=== PATIENT | male | born 1960 | race African-American/Black ===

== ENCOUNTER 2019-07-17 13:11 | Emergency (ER) | payer SELFPAY ==
[~2019-07-17] VITALS: Ht 180.3 cm; Wt 86.3 kg
[2019-07-17 14:03] VITALS: BP 121/87
[2019-07-17] MEDS: ALPRAZolam 0.5 MG TABLET PO ONE (14:06)
--- NOTE | 2019-07-17 14:53 | PHYS DOC ---
Past Medical History Past Medical History: Anxiety, Depression, Hypertension, Schizophrenia Past Surgical History: Other Additional Past Surgical Histo: HERNIA Smoking Status: Current Every Day Smoker Alcohol Use: Occasionally Adult General Chief Complaint Chief Complaint: TONGUE SWELLING/INJURY HPI HPI Patient is a 59 year old male with history of schizophrenia and hypertension who presents with complaining of swelling of "bump of tongue". Patient states for the last couple days he feels a lump in lateral right side of tongue and top of his mouth without pain, bleeding, soreness, injury. Patient states he feels something moving inside of his mouth and Googled his symptom and found out that he has parasite inside of his mouth. Patient states because of this problem he has hallucinations and hearing voices and seeing something that other people cannot see. Patient denies suicidal or homicidal ideation and missing his medication. Review of Systems Review of Systems Constitutional: Denies fever or chills [] Eyes: Denies change in visual acuity, redness, or eye pain [] HENT: Denies nasal congestion or sore throat [] Respiratory: Denies cough or shortness of breath [] Cardiovascular: No additional information not addressed in HPI [] GI: Denies abdominal pain, nausea, vomiting, bloody stools or diarrhea [] : Denies dysuria or hematuria [] Musculoskeletal: Denies back pain or joint pain [] Integument: Denies rash or skin lesions [] Neurologic: Denies headache, focal weakness or sensory changes [] Endocrine: Denies polyuria or polydipsia [] All other systems were reviewed and found to be within normal limits, except as documented in this note. Current Medications Current Medications Current Medications Medications (Trade) Dose Ordered Sig/[facility] Start Time Stop Time Status Last Admin Dose Admin Alprazolam (Xanax) 0.5 mg 1X ONCE 07/17/19 14:00 07/17/19 14:01 DC 07/17/19 14:06 0.5 MG Allergies Allergies Allergies Coded Allergies Type Severity Reaction Last Updated Verified No Known Drug Allergies 07/17/19 No Physical Exam Physical Exam Constitutional: Well nourished, no acute distress, non-toxic appearance. [] HENT: Normocephalic, atraumatic, bilateral external ears normal, oropharynx moist, no oral exudates, normal tongue exam, nose normal. [] Eyes: PERRLA, EOMI, conjunctiva normal, no discharge. [] Neck: Normal range of motion, no tenderness, supple, no stridor. [] Cardiovascular:Heart rate regular rhythm, no murmur [] Lungs & Thorax: Bilateral breath sounds clear to auscultation [] Skin: Warm, dry, no erythema, no rash. [] Back: No tenderness, no CVA tenderness. [] Extremities: No tenderness, no cyanosis, no clubbing, ROM intact, no edema. [] Neurologic: Alert and oriented X 3, normal motor function, normal sensory function, no focal deficits noted. [] Psychologic: Affect anxious, mood normal. [] Current Patient Data Vital Signs Vital Signs Date Time Temp Pulse Resp B/P (MAP) Pulse Ox O2 Delivery O2 Flow Rate FiO2 07/17/19 14:03 82 121/87 (98) 96 Room Air 07/17/19 13:34 97.5 14 97.5 EKG EKG [] Radiology/Procedures Radiology/Procedures [] Course & Med Decision Making Course & Med Decision Making Evaluation of patient ER showed 59-year-old male patient with history of a schizophrenia who thought vein of lateral sideof his tongue is parasite and asking for treatment. Patient treated with Xanax in ER with improvement of his condition and was advised to follow-up with his mental clinic. Patient did not have suicidal or homicidal ideation and was alert and oriented. I've spoken with the patient and/or caregivers. I've explained the patient's condition, diagnosis and treatment plan based on information available to me at this time. I've answered the patient's and/or caregivers questions and addressed any concerns. The patient and/or caregivers have a good understanding the patient's diagnosis, condition and treatment plan as can be expected at this point. Vital signs have been stabilized. The patient's condition is stable for discharge from the emergency department. The patient will pursue further outpatient evaluation with her primary care provider or other designated consulting physician as outlined in the discharge instructions. Patient and/or caregivers are agreeable to this plan of care and follow-up instructions have been explained in detail. The patient and/or caregivers have received these instructions in written format and expressed understanding of these discharge instructions. The patient and her caregivers are aware that if any significant change in condition or worsening of symptoms should prompt him to immediately return to this of the closest emergency department. If an emergent department is not readily available I would encourage him to call 911. Julio Disclaimer Dragon Disclaimer This electronic medical record was generated, in whole or in part, using a voice recognition dictation system. Departure Departure Impression: Primary Impression: Hallucination Disposition: HOME, SELF-CARE (At 1449) Condition: IMPROVED Referrals: NO PCP (PCP) Patient Instructions: Hallucinations and Delusions Additional Instructions: Follow up with your mental health provider Continue current medications Return to ER if not getting better JAMES DOLAN MD Jul 17, 2019 14:53
== END 2019-07-17 14:59 | disposition home or self-care (01) ==
LOC: ER 13:11
DX: F20.9 Schizophrenia, unspecified (principal); R60.0 Localized edema; R19.05 Periumbilic swelling, mass or lump; F41.9 Anxiety disorder, unspecified; F32.9 Major depressive disorder, single episode, unspecified; I10 Essential (primary) hypertension; F17.200 Nicotine dependence, unspecified, uncomplicated; Z98.890 Other specified postprocedural states
CPT/HCPCS: 99283

== ENCOUNTER → 2020-05-21 | Outpatient (CLI) | payer OTHER ==
--- NOTE | 2020-05-21 17:27 | RAD ---
XR LUMBAR SPINE 2-3V History: Reason: LOW BACK PAIN. CHRONIC BACK PAIN WITH PAIN RADIATING DOWN LEGS / Spl. Instructions: / History: Technique: 2 views lumbar spine. Comparison: None. Findings: Normal vertebral body height and alignment. No fracture. Moderate degenerative disc changes most prom inent L4-5 and L5-S1. Lower lumbar facet arthropathy. Chronic lower thoracic anterior vertebral body wedging. Irregularity of the L2 inferior endplate anteriorly. Impression: 1. Moderate lower lumbar spondylosis. 2. Irregularity of the anterior inferior L2 endplate, may relate to degenerative changes. If persist ent clinical concern, MRI can better evaluate. Electronically signed by: Oscar Koenig DO (05/21/2020 5:24 PM) [id number]
== END ==
LOC: RAD 12:02
PROVIDERS: ATTEND Surgery
DX: M47.816 Spondylosis without myelopathy or radiculopathy, lumbar region (principal); G89.29 Other chronic pain
CPT/HCPCS: 72100